=== PATIENT | male | born 1960 | race American Indian/Alaskan Native ===

== ENCOUNTER 2017-06-01 16:06 | Outpatient (CLI) | payer OTHER ==
--- NOTE | 2017-06-01 16:43 | XRay Report ---
BILATERAL KNEE RADIOGRAPHS INDICATION: Bilateral knee pain. Diagnosed with gout and arthritis 5-10 years ago. COMPARISON: None similar at this institution. FINDINGS: AP and lateral views of both knees demonstrate intact articulation. Moderate medial compartment narrowing noted with degenerative spurring, right more than left. Patellofemoral degenerative changes and superior patellar enthesophytes bilaterally also seen. Mild atherosclerotic vascular calcifications. CONCLUSION: Bilateral knee osteoarthrosis with moderate medial compartment degenerative changes, as described. Thank you for the opportunity to participate in this patient's care.
== END 2017-06-01 16:07 | disposition home or self-care (01) ==
LOC: XRAY 16:06
PROVIDERS: ATTEND Internal Medicine
DX: Z02.71 Encounter for disability determination (principal); M17.0 Bilateral primary osteoarthritis of knee; M25.862 Other specified joint disorders, left knee; M25.861 Other specified joint disorders, right knee